=== PATIENT | male | born 2005 | race Caucasian/White ===

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

== ENCOUNTER 2025-01-20 17:09 | Emergency (ER) | payer OTHER, SELFPAY ==
[2025-01-20 17:16] VITALS: BP 132/68; PULSE 72; RESP 16; TEMP 36.6; O2SAT 97
--- OUTSIDE RECORDS SUMMARY | 2025-01-20 17:20 | XMS_ITS | Clinical Summary ---
Author Organization [facility] [employer] Address [address] [place] [address] Care Team Providers Care Dispatcher Relay Name Role Phone Sandy Clark MD Primary Care Provider [phone] Source Comments [facility] [employer],non-owned Affiliates and Associated Physician Practices is amultiple site organization consisting of ambulatory clinics and hospital sitesin [place], [place], [place] and [place]. This disclosure is being madepursuant to the Care Everywhere program and may not contain all information available regarding this patient. Last updated 18.[employer] Allergies No known active allergies Medications * Be aware that medications may not be up to date on this document. Alwaysverify current medications with the patient. albuterol HFA (Proventil; Ventolin; Proair) 108 (90 Base) MCG/ACT inhaler INHALE 2 PUFFS BY MOUTH EVERY 4 TO 6 HOURS DIRECTED 3 Active polyethylene glycol 3350 (MiraLax) 17 GM/SCOOP powderIndicatio ns:Colonoscopy At 12 pm the day before the procedure, mix 14 caps, which is 238 grams, of Miralax with 64 ounces of Gatorade. Drink 8 ounces every 20 minutes until finished. Reasons: Colonoscopy 510 g 3 Active phenyleph-shark angelia oil-mo-pet (Preparation H) 0.25-3-14-71.9 % ointment Insert into the rectum 3 times daily as needed for Hemorrhoids 28.4 g 1 3 Active Active Problems Problem Noted Date Diagnosed Date Tenesmus (rectal) 06/15/2023 Hematochezia 06/15/2023 Resolved Problems Problem Noted Date Diagnosed Date Resolved Date Diarrhea 06/15/2023 07/13/2023 Social History Tobacco Use Types Packs/Day Years Used Date Smoking Tobacco: Never Assessed Passive Smoke Exposure: Never Tobacco Cessation:Counseling Given: Not Answered Sex and Gender Information Value Date Recorded Sex Assigned at Not on file Legal Sex Male 3:33 PM CDT Gender Identity Not on file Sexual Orientation Not on file Last Filed Vital Signs Vital Sign Reading Time Taken Comments Blood Pressure 104/70 06/27/2023 8:30 AM HAND WOODWORKING SANDER Pulse 78 06/27/2023 8:30 AM HAND WOODWORKING SANDER Temperature 36.1 C (97 F) 06/27/2023 8:10 AM HAND WOODWORKING SANDER Respiratory Rate 22 06/27/2023 8:30 AM HAND WOODWORKING SANDER Oxygen Saturation 100% 06/27/2023 8:30 AM HAND WOODWORKING SANDER Inhaled Oxygen Concentration 100% 06/27/2023 8 :15 AM HAND WOODWORKING SANDER Weight 61 kg (134 lb 7.7 oz) 06/27/2023 6:32 AM HAND WOODWORKING SANDER Height 181.2 cm (5' 11.34) 06/27/2023 6:[address] Body Mass Index 18.58 06/27/2023 6:32 AM HAND WOODWORKING SANDER Body Mass Index Percentile 8.92% 06/27/2023 6:3 2 AM HAND WOODWORKING SANDER Growth Chart: CDC (Boys, 2-2 0 Years) Plan of Treatment Health Maintenance Due Date Last Done Comments HIV SCREENING 2020 HPV VACCINE (1 - Male 3-dose series) 2020 MENINGOCOCCAL (Group B) VACC INE SHARED DECISION-MAKING (1 of 2 - Standard) 2021 HEPATITIS C SCREENING 10/18/2023 COVID-19 VACCINE (1 - 2023-2 5 season) 2024 DEPRESSION SCREENING 08/07/2024 DTAP/TDAP/TD VACCINES (1 - Tdap) 2024 HEPATITIS B VACCINE (1 of 3 - 19+ 3-dose series) 2024 INFLUENZA VACCINE (Season Ended) 2025 ZOSTER VACCINE (1 of 2) 10/23/2055 HIB VACCINE Aged Out No longer eligi ble based on patient's age to complete this topic MENINGOCOCCAL GROUPS A/C/Y/W VACCINE Aged Out No longer eligible b ased on patient's age to complete this topic PNEUMOCOCCAL VACCINE Aged Out No long er eligible based on patient's age to complete this topic Additional Health Concerns Infection Onset Date Last Indicated CDIFF Under Investigation 06/15/20232022 Insurance [facility] Care Teams Dispatcher Relay Relationship Specialty Start Date End Date Sandy Clark MD [address] [place] [id number] PCP - General Pediatrics 06/05/23
--- OUTSIDE RECORDS SUMMARY | 2025-01-20 17:20 | XMS_ITS | Clinical Summary ---
Author Organization [facility] Address [facility] [place] [address] Care Team Providers Care Cracker Sprayer Name Role Phone Sandy Clark MD Primary Care Provider [phone] Allergies No known active allergies Medications cetirizine (ZyrTEC) 10 mg tablet Take 10 mg by mouth daily Active oxyCODONE (ROXICODONE) solution 5 mg/5 mLIndications:P ain Take 5 mL (5 mg total) by mouth every 4 (four) hours as needed for pain for up to 5 doses 25 mL 3 Active acetaminophen (TYLENOL) 500 mg tablet Take 1 tablet (500 mg total) by mouth every 6 (six) hours as needed for pain 30 tablet 3 Active moxifloxacin (VIGAMOX) 0.5 % ophthalmic solutionIndicat ions:Bacterial Corneal Ulcer Infection Administer 1 drop into both eyes 3 (three) times a day 3 mL 4 Active Active Problems Problem Noted Date Diagnosed Date Finger injury, initial encounter 10/30/2020 Surgical History Surgery Date Site/Laterality Comments EAR SURGERY Medical History Medical History Date Comments Asthma Family History Medical History Relation Name Comments Arthritis Mother Relation Name Status Comments Father Alive Mother Alive Social History Tobacco Use Types Packs/Day Years Used Date Smoking Tobacco: Never Smokeless Tobacco: Never Personal Safety Answer Date Recorded Have you ever been in or are you currently in a harmful physical or emotional relationship or is someone making you feel afraid or unsafe? 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 (Boys, 2-20 Years) Last Filed Vital Signs Vital Sign Reading Time Taken Comments Blood Pressure 118/62 04/18/2024 1:25 AM CDT Pulse 71 04/18/2024 1:25 AM CDT Temperature 36.9 C (98.4 F) 04/18/2024 1:25 AM CDT Respiratory Rate 18 04/18/2024 1:25 AM CDT Oxygen Saturation 100% 04/18/2024 1:25 AM CDT Inhaled Oxygen Concentration - - Weight 59.9 kg (132 lb 0.9 oz) 04/18/2024 1:25 A M CDT Height 175.3 cm (5' 9.02) 04/18/2024 1:25 AM CD T Body Mass Index 19.49 04/18/2024 1:25 AM CDT Body Mass Index Percentile 13.53% 04/18/2024 1:2 5 AM CDT Growth Chart: [facility] (Boys, 2-2 0 Years) Plan of Treatment Health Maintenance Due Date Last Done Comments Depression Screening 2005 Hepatitis C Screening 2005 Regular Well Visit/Exam 18-64 10/23/2023 Influenza Vaccine (Season Ended) 2025 05/02/2017, 04/21/2016, 06/05/2014, Additional history exists DTaP/Tdap/Td Vaccine (7 - Td or Tdap) 04/21/2026 04/21/2016, 11/03/2009, 03/13/2007, Additional history exists Hepatitis B Screening Completed 05/08/2006 , 03/13/2006, 01/11/2006, Additional history exists Pneumococcal vaccine <65 Completed 007, 05/08/2006, 03/13/2006, Additional history exists Varicella Vaccines Completed 01/25/2011, 10/23/2006 HPV Vaccines Completed 10/31/2017, 05/02/2017 Meningococcal Vaccine Completed 12/15/2022, 017 Meningococcal B Vaccine Completed 04/06/2023, 12/15 Insurance [facility] [place] [address] [place] [address] [facility] Care Teams Cracker Sprayer Relationship Specialty Start Date End Date Sandy Clark MD [address] [place] [address] PCP - General 06/07/21
--- OUTSIDE RECORDS SUMMARY | 2025-01-20 17:20 | XMS_ITS | Encounter Summary ---
Author Organization [facility] Address [address] [place] [address] Care Team Providers Care Field Radio Technician Name Role Phone Sandy Clark MD Primary Care Provider [phone] Encounter Details Date Type Department Care Team (Late st Contact Info) Description 06/21/2023 Telephone [facility] Pediatrics - GI [address] [place] [address] Polly Dueñas MD [address] [place] [address] Social History Tobacco Use Types Packs/Day Years Used Date Smoking Tobacco: Never Assessed Passive Smoke Exposure: Never Sex and Gender Information Value Date Recorded Sex Assigned at Not on file Legal Sex Male 3:33 PM CDT Gender Identity Not on file Sexual Orientation Not on file documented as of this encounter Miscellaneous Notes * Telephone Encounter - Gricelda Bowers RN - 06/22/2023 3:04 PM CST Returned call, SW Mom, relayed results and plan per Dr. Dueñas. Mom requests lab orders get sent to [facility] (they go to the one in [place], [place]). Orders sent to [facility]. Mom and pt are working on collecting stool samples. OR CLERK * Telephone Encounter - Criss Arnett RN - 06/22/2023 1:23 PM SENIOR CLERK Mom called back and left message returning our call [phone] OR CLERK * Telephone Encounter - Gricelda Bowers RN - 06/22/2023 12:52 PM SENIOR CLERK Returned call, straight to VM. Left VM for callback. OR CLERK * Telephone Encounter - Criss Arnett RN - 06/22/2023 11:59 AM SENIOR CLERK Mom called and left VM returning our call [phone] OR CLERK * Telephone Encounter - Dulce Berumen RN - 06/22/2023 11:26 AM CST Called home. No answer. LM for call back. OR CLERK * Telephone Encounter - Catalina Jung RN - 06/21/2023 4:09 PM CST Called and left VM requesting a call back. OR CLERK * Telephone Encounter - Polly Dueñas MD - 06/21/2023 2:48 PM CST Blood work is back and is normal, except for mild elevation of the total bilirubin, which could mean a benign condition but probably irrelevant to his symptoms. For this specifically, we would like to suggest to repeat a CMP and direct bilirubin and a GGT in 3months Otherwise, we are waiting for the stool tests. OR CLERK documented in this encounter Plan of Treatment Scheduled Orders Name Type Priority Associated Diagnoses Orde r Schedule COMPREHENSIVE METABOLIC PANEL Lab Routine Abnormal laboratory test result Ordered: 06/22/2023 GGT Lab Routine Abnormal laboratory test result Ordered: 06/22/2023 BILIRUBIN DIRECT Lab Routine Abnormal laboratory test result Ordered: 06/22/2023 documented as of this encounter Visit Diagnoses Diagnosis Abnormal laboratory test result- Primary Other abnormal clinical finding documented in this encounter Additional Health Concerns Infection Onset Date Last Indicated Resolved Time CDIFF Under Investigation 06/15/2023 06/15/2023 documented as of this encounter Care Teams Field Radio Technician Relationship Specialty Start Date End Date Sandy Clark MD [address] [place] [address] PCP - General Pediatrics 06/05/23 documented as of this encounter
--- OUTSIDE RECORDS SUMMARY | 2025-01-20 17:20 | XMS_ITS | Referral Summary ---
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 Gender Identity Not on file Sexual Orientation [...] 04/18/2024 1:2 5 AM CDT Growth Chart: [facility] (Boys, 2-2 0 Years) Plan of Treatment Not on file Insurance [facility] [place] [address] [address] [address] [place] [address] [facility] Care Teams Accordion Repairer Relationship Specialty Start Date End Date Sandy Clark MD [address] [place] [address] PCP - General 06/07/21
--- NOTE | 2025-01-20 17:26 | ED.SKABFB ---
HPI - Skin/Abscess/Foreign Bdy General Chief complaint: Skin/Abscess/Foreign Body Stated complaint: Poison Court/Sumac Time Seen by Provider: 01/20/25 17:26 Source: patient Mode of arrival: ambulatory Limitations: no limitations History of Present Illness HPI narrative: 19-year-old male presents with poison court rash for 2 weeks. [address] to left arm is now spreading to right arm and chest. Using an [id number]-yanazcz poison court cream. Continues to have itching. All systems reviewed and negative except as noted above. Related Data Allergies Allergy/AdvReac Type Severity Reaction Status Date / Time No Known Allergies Allergy Verified 08/17/23 08:32 Review of Systems Review of Systems: CONSTITUTIONAL: Denies fever, chills, or sweats. EYES: Denies visual changes, redness, or discharge. ENT: Denies rhinorrhea, congestion, sore throat, or otalgia. CARDIOVASCULAR: Denies chest pain, palpitations, or edema. RESPIRATORY: Denies cough or dyspnea. GASTROINTESTINAL: Denies abdominal pain, nausea, vomiting, or diarrhea. GENITOURINARY: Denies dysuria or hematuria. SKIN: Denies rash or itching. Reports poison court rash to bilateral arms and chest MUSCULOSKELETAL: Denies back pain, joint pain, or myalgia. NEUROLOGIC: Denies headache, numbness, or weakness. PSYCHIATRIC: Denies anxiety or depression. All other systems reviewed are negative, except as documented in HPI. [facility] Past Medical History Medical History Asthma Otitis media Surgical History Surgical History History of tympanostomy tube placement No significant past surgical history Family History Family History Other No significant family history Mother Family history non-contributory Social History Social History Smoking status: Never smoker Second hand tobacco smoke exposure: Yes Alcohol intake: never Substance use: never Living arrangements: with family Occupation/Education: student Gender identity (if verbalized by the patient): Male Comments At time of signature, agree with nursing past medical, surgical, social and family history. There is no relevant family history pertinent to the presenting complaint. Exam Narrative: GENERAL: This is a well-nourished, well-developed patient, in no apparent distress. HEAD: normocephalic, atraumatic. EYES: PERRL. Sclera clear/white. Vision is grossly intact. EARS: External ears normal NOSE: External nose normal NECK: Neck supple, non-tender without lymphadenopathy, masses or thyromegaly. CARDIOVASCULAR: Regular rate and rhythm without murmurs, gallops, or rubs. RESPIRATORY: Clear to auscultation. Breath sounds equal bilaterally. No wheezes, rales, or rhonchi. SKIN: warm, Dry, intact with erythematous physical to bilateral arms and to chest. Rash is mild. NEURO: awake, alert, and oriented to person, place and time. There were no obvious focal neurologic abnormalities. EXTREMITIES: No joint tenderness, effusion, or edema noted. Course Course Level of Care: Express Care Visit Vital Signs Vital signs: Vital Signs Temperature 36.6 C 01/20/25 17:16 Pulse Rate 72 01/20/25 17:16 Respiratory Rate 16 01/20/25 17:16 Blood Pressure 132/68 01/20/25 17:16 Pulse Oximetry 97 01/20/25 17:16 Oxygen Delivery Room Air 01/20/25 17:16 Temperature 36.6 C 01/20/25 17:16 Pulse Rate 72 01/20/25 17:16 Respiratory Rate 16 01/20/25 17:16 Blood Pressure 132/68 01/20/25 17:16 Pulse Oximetry 97 01/20/25 17:16 Oxygen Delivery Room Air 01/20/25 17:16 Reviewed MDM - Skin/Abscess/Foreign Bdy MDM Narrative Medical decision making narrative: will treat poison court rash with prednisone taper and triamcinolone. Recommend yrfi-sdl-bdoxrge antihistamine to treat itching. Patient agrees with plan of care. Patient is well-appearing, nontoxic. Differential Diagnosis Differential diagnosis: Likely urticaria, herpes zoster, eczema, insect bites and contact dermatitis Discharge Plan Discharge Clinical Impression: Dermatitis due to plants, including poison court, sumac, and oak Patient Disposition: Home Condition: Stable Instructions: Poison Court (ED) Additional Instructions: take medications as prescribed. Apply triamcinolone cream sparingly to affected areas. Take a daily antihistamine such as Claritin or Zyrtec to treat itching. Patient Language: Ukrainian Prescriptions: New prednisone 10 mg tablet See Rx Instructions .ROUTE .COMPLEX Qty: 42 0RF Rx Instructions: Take 6 tablets for 2 days Take 5 tablets for 2 days Take 4 tablets for 2 days Take 3 tablets for 2 days Take 2 tablets for 2 days Take 1 tablet for 2 days triamcinolone acetonide 0.1 % cream 1 applic topical BID Qty: 30 0RF Follow-up/Referrals: PHYSICIAN,ACCOUNT INSTALLER [Primary Care Provider] - Time of Disposition: 17:29
== END 2025-01-20 17:35 | disposition home or self-care (01) ==
PROVIDERS: Emergency Provider Nurse Practitioner Family
DX: L23.7 Allergic contact dermatitis due to plants, except food (principal); J45.909 Unspecified asthma, uncomplicated
CPT/HCPCS: 99213; G0463

== ENCOUNTER 2025-03-18 14:44 | Emergency (ER) | payer OTHER, SELFPAY ==
--- NOTE | 2025-03-18 14:47 | ED_ITS ---
HPI - General Adult General Chief complaint: Skin/Abscess/Foreign Body Stated complaint: poison sumac or oak Time Seen by Provider: 03/18/25 14:49 Source: patient Mode of arrival: ambulatory Limitations: no limitations History of Present Illness HPI narrative: 19 y/o male presented for c/o itchy rash spreading on arms legs and neck. Onset one week. Says it is likely poison oak or sumac. Denies lip, tongue, or throat swelling, shortness of breath or wheezing. Denies changes to soap, detergent, lotion, or any other exposures. No one else in the house or any contacts with similar symptoms. He is using steroid cream prescribed in January when he had similar symptoms. Related Data Allergies Allergy/AdvReac Type Severity Reaction Status Date / Time No Known Allergies Allergy Verified 08/17/23 08:32 Review of Systems Review of Systems: CONSTITUTIONAL: Denies body aches, fever, chills, or sweats. EYES: Denies visual changes, redness, or discharge. ENT: Denies rhinorrhea, congestion CARDIOVASCULAR: Denies chest pain, palpitations, or edema. RESPIRATORY: Denies cough or dyspnea. GASTROINTESTINAL: Denies abdominal pain, nausea, vomiting, or diarrhea. SKIN: reports rash MUSCULOSKELETAL: Denies back pain, joint pain, or myalgia. NEUROLOGIC: Denies headache, numbness, tingling, or weakness. [facility] Past Medical History Medical History Asthma Otitis media Surgical History Surgical History History of tympanostomy tube placement No significant past surgical history Family History Family History Other No significant family history Mother Family history non-contributory Social History Social History Smoking status: Never smoker Second hand tobacco smoke exposure: Yes Alcohol intake: never Substance use: never Living arrangements: with family Occupation/Education: student Gender identity (if verbalized by the patient): Male Comments At time of signature, I have reviewed and agree with nursing past medical, surgical, social and family history unless otherwise noted. Please see nursing chart for further information. There is no relevant family history pertinent to the presenting complaint Exam Narrative: GENERAL: Well-appearing HEAD: Normocephalic, atraumatic. EYES: conjunctivae clear, and EOMI. ENT: Mucous membranes moist. Oropharynx without edema, erythema or lesions. NECK: Supple. No lymphadenopathy CHEST: Clear to auscultation. HEART: Regular rate and rhythm. SKIN: Warm, dry. Scattered erythematous papules noted to bilateral forearms, neck, and left knee c/w contact dermatitis. Knee lesions draining serous fluid. NEURO: Alert and oriented x3. Course Course Emergency Course: Patient is aware of diagnosis, understands and agrees to treatment plan. Anticipatory guidance given. Patient agrees to follow-up as directed and is aware of reasons to seek care at the emergency department. Portions of this record may have been created with voice recognition software Level of Care: Express Care Visit Vital Signs Vital signs: Reviewed Medical Decision Making MDM Narrative Medical decision making narrative: Discussed physical exam findings c/w contact derm. Advised supportive measures and signs/symptoms to go to the ER. Pt is appropriate for outpt treatment and f/u. Differential Diagnosis Differential Diagnosis: Viral exanthema, contact dermatitis, allergic dermatitis, eczema, urticaria, insect bites, impetigo, tinea, folliculitis Discharge Plan Discharge Clinical Impression: Contact dermatitis Patient Disposition: Home Condition: Stable Instructions: Antibiotic Form, Poison Court (ED) Additional Instructions: Take steroids and Pepcid as directed. Benadryl every 8 hours as needed You can continue to apply the previously prescribed steroid cream Cool compresses to the sites of itching, avoid hot water. Avoid scratching to reduce the risk of infection Follow up with your primary care provider as needed in 1 week Go to the ER for worsening symptoms or concerns (lip, tongue, throat swelling/itching, trouble breathing etc) Patient Language: Citizen Of [place] Prescriptions: New prednisone 20 mg tablet 20 mg PO DAILY Qty: 12 0RF Rx Instructions: take 3 tablets daily for 2 days, then 2 tablets daily for 2 days then 1 tablet daily for 2 days No Action triamcinolone acetonide 0.1 % cream 1 applic topical BID Qty: 30 0RF Follow-up/Referrals: UNKNOWN,DOCTOR [Non-Staff] - Time of Disposition: 14:59
[2025-03-18 14:49] VITALS: BP 127/72; PULSE 82; RESP 16; TEMP 36.2; O2SAT 99
--- OUTSIDE RECORDS SUMMARY | 2025-03-18 15:12 | XMS_ITS | Clinical Summary ---
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 Gender Identity Not on file Sexual Orientation Not on file Obstetrics History Growth Chart Information Age Height Weight Aobexi-bqz-svlp th Percentile BMI Percentile Head Circum Head [...] 59 kg (130 lb) 42.50%* 2020 * [facility] (Boys, 2-20 Years) Last Filed Vital [...] 04/18/2024 1:2 5 AM CDT Growth Chart: [facility] (Boys, 2-2 0 Years) Plan of Treatment Health Maintenance Due Date Last Done Comments Depression Screening 2005 Hepatitis C Screening 2005 Regular Well Visit/Exam 18-64 10/23/2023 Influenza Vaccine (#1) 2025 7, 04/21/2016, 06/05/2014, Additional history exists DTaP/Tdap/Td Vaccine (7 - Td or Tdap) 04/21/2026 04/21/2016, 11/03/2009, 03/13/2007, Additional history exists Hepatitis B Screening Completed 05/08/2006 , 03/13/2006, 01/11/2006, Additional history exists Pneumococcal vaccine <65 Completed 007, 05/08/2006, 03/13/2006, Additional history exists Varicella Vaccines Completed 01/25/2011, 10/23/2006 HPV Vaccines Completed 10/31/2017, 05/02/2017 Meningococcal Vaccine Completed 12/15/2022, 017 Meningococcal B Vaccine Completed 04/06/2023, 12/15 [place] [address] [facility] H[facility]/PPO Address: [address] [address] [place] [address] [facility] HMO/PPO Address[id number] [address] [place] [address] [place] [address] [place] [address] [facility] IDPA [facility] HMO/PPO Address: [address] [address] [place] [address] IDPA R [facility] H[facility]/PPO Address: [address] [address] [place] [address] Care Teams Social Science Instructor Relationship Specialty Start Date End Date Sandy Clark MD [address] [place] [address] PCP - General 06/07/21
--- OUTSIDE RECORDS SUMMARY | 2025-03-18 15:12 | XMS_ITS | Encounter Summary ---
Author Organization [facility] [employer] Address [address] [place] [address] Care Team Providers Care Car Hopper Name Role Phone Sandy Clark MD Primary Care Provider [phone] Encounter Details Date Type Department Care Team (Late st Contact Info) Description 06/21/2023 Telephone [facility] [employer] [facility] Pediatrics - GI [address] [place] [address] Polly Dueñas MD [address] [place] [address] Social History Tobacco Use Types Packs/Day Years [...] Mom requests lab orders get sent to [facility] (they go to the one in [place], [place]). Orders sent to [facility]. Mom and pt are working on collecting stool samples. ULATION REVIEWER * Telephone Encounter - Criss Arnett RN - 06/22/2023 1:23 PM CALCULATION REVIEWER Mom called back and left message returning our call [phone] ULATION REVIEWER * Telephone Encounter - Gricelda Bowesr RN - 06/22/2023 12:52 PM CALCULATION REVIEWER Returned call, straight to VM. Left VM for callback. ULATION REVIEWER * Telephone Encounter - Criss Arnett RN - 06/22/2023 11:59 AM CALCULATION REVIEWER Mom called and left VM returning our call [phone] ULATION REVIEWER * Telephone Encounter - Dulce Berumen RN - 06/22/2023 11:26 AM CST Called home. No answer. LM for call back. ULATION REVIEWER * Telephone Encounter - Catalina Jung RN - 06/21/2023 4:09 PM CST Called and left VM requesting a call back. ULATION REVIEWER * Telephone Encounter - Polly Dueñas MD [...] we are waiting for the stool tests. ULATION REVIEWER documented in this encounter Plan of Treatment [...] documented as of this encounter Care Teams Car Hopper Relationship Specialty Start Date End Date Sandy Clark MD [address] [place] [address] PCP - General Pediatrics 06/05/23 documented as of this encounter
--- OUTSIDE RECORDS SUMMARY | 2025-03-18 15:12 | XMS_ITS | Clinical Summary ---
Author Organization [facility] Address [address] [facility] [place] [address] Care Team Providers Care Optomechanical Engineer Name Role Phone Sandy Clark MD Primary Care Provider [phone] Source Comments [facility],non-owned Affiliates and Associated Physician Practices is amultiple site organization consisting of ambulatory clinics and hospital sitesin [place], [place], [place] and [place]. This disclosure is being madepursuant to the Care Everywhere program and may not contain all information available regarding this patient. Last updated 18.[facility] Allergies No known active allergies Medications * [...] Comments Blood Pressure 104/70 06/27/2023 8:30 AM MARKETING CONTENT SPECIALIST Pulse 78 06/27/2023 8:30 AM MARKETING CONTENT SPECIALIST Temperature 36.1 C (97 F) 06/27/2023 8:10 AM MARKETING CONTENT SPECIALIST Respiratory Rate 22 06/27/2023 8:30 AM MARKETING CONTENT SPECIALIST Oxygen Saturation 100% 06/27/2023 8:30 AM MARKETING CONTENT SPECIALIST Inhaled Oxygen Concentration 100% 06/27/2023 8 :15 AM MARKETING CONTENT SPECIALIST Weight 61 kg (134 lb 7.7 oz) 06/27/2023 6:32 AM MARKETING CONTENT SPECIALIST Height 181.2 cm (5' 11.34) 06/27/2023 6:[address] Body Mass Index 18.58 06/27/2023 6:32 AM MARKETING CONTENT SPECIALIST Body Mass Index Percentile 8.92% 06/27/2023 6:3 2 AM MARKETING CONTENT SPECIALIST Growth Chart: CDC (Boys, 2-2 0 Years) [...] - 19+ 3-dose series) 2024 INFLUENZA VACCINE (#1) 2025 ZOSTER VACCINE (1 of 2) 10/23/2055 [...] Last Indicated CDIFF Under Investigation 06/15/20232022 Insurance [facility] Care Teams Optomechanical Engineer Relationship Specialty Start Date End Date Sandy Clark MD [address] [place] [id number] PCP - General Pediatrics 06/05/23
== END 2025-03-18 15:03 | disposition home or self-care (01) ==
PROVIDERS: Emergency Provider Nurse Practitioner Family
DX: L25.9 Unspecified contact dermatitis, unspecified cause (principal)
CPT/HCPCS: 99213; G0463